=== PATIENT | male | born 1980 | race Two or more races ===

== ENCOUNTER 2020-04-10 02:17 | Inpatient (IN) | payer OTHER ==
[~2020-04-10] VITALS: Ht 170.2 cm; Wt 80.5 kg
[2020-04-10 02:57] LABS: Basophils # (auto) 0.1 10 ^3/uL (0-0.2); Basophils % (auto) 1.4 % (0.0-2.0); Eosinophils # (auto) 0.6 10 ^3/uL (0-0.8); Eosinophils % (auto) 9.1 % (0.0-7.0); Hematocrit 41.6 % (41.0-53.0); Hemoglobin 13.3 g/dL (13.5-17.5); Lymphocytes # (auto) 0.5 10 ^3/uL (0.4-5.4); Lymphocytes % (auto) 6.9 % (10.0-50.0); Mean Corpuscular Hemoglobin 28.3 pg (28.0-32.0); Mean Corpuscular Hgb Conc. 31.9 g/dL (32.0-36.0); Mean Corpuscular Volume 88.7 fL (80.0-100.0); Monocytes # (auto) 0.5 10 ^3/uL (0-1.3); Monocytes % (auto) 6.9 % (0.0-12.0); Neutrophils # (auto) 5.3 10 ^3/uL (1.6-8.6); Neutrophils % (auto) 75.7 % (37.0-80.0); Platelet Count (auto) 202 10^3/uL (140-450); Red Blood Cells 4.69 10^6/uL (4.5-5.90); Red Cell Distribution Width 16.2 % (11.8-14.3)
[2020-04-10 03:13] LABS: INR 1.25 (0.9-1.15)
[2020-04-10 03:15] LABS: Albumin 1.7 g/dL (3.4-5.0); Calcium 7.9 mg/dL (8.5-10.1); Magnesium 2.1 mg/dL (1.6-2.6); Potassium 3.5 mmol/L (3.5-5.1)
[2020-04-10 03:20] LABS: BUN/Creatinine Ratio 21.7; Bilirubin, Total 0.4 mg/dL (0.2-1.0); Total Protein 4.8 g/dL (6.4-8.2)
[2020-04-10] MEDS ORDERED: FUROSEMIDE 40 MG/4 ML VIAL IV ONE (03:45)
[2020-04-10] MEDS ORDERED: NITROGLYCERIN 0.4 MG SL TAB SL PRN (05:30)
[2020-04-10] MEDS ORDERED: ONDANSETRON HCL 4 MG/2 ML VIAL IV PRN (05:30)
[2020-04-10] MEDS ORDERED: MORPHINE SULF INJ 2 MG/ML SYRINGE 1ML IV PRN (05:30)
[2020-04-10] MEDS ORDERED: TEMAZEPAM 15 MG CAP PO PRN (05:30)
[2020-04-10] MEDS ORDERED: DEXTROSE (50%) 50ML SYRG IV PRN (05:30)
[2020-04-10] MEDS: FUROSEMIDE 20 MG TAB PO SCH ×2 (06:41→17:23)
[2020-04-10] MEDS: ACCU-CHEK COMFORT CURVE STRIP VI SCH ×4 (06:41→22:09)
[2020-04-10] MEDS: InsuLIN REG 1unit/0.01ml Soln (100units/ml) SC SCH ×4 (06:47→22:00)
--- NOTE | 2020-04-10 09:15 | NUR ---
Telemetry admit from [facility] admitted to Telemetry unit after SBAR received. Patient oriented to JUVENAL WEST RN primary RN, unit, room, bed, and unit policies regarding patient care and visiting hours. Patient now on continuous telemetry monitoring. All questions and concerns addressed, patient verbalized understanding.
[2020-04-10 09:49] VITALS: BP 120/51
--- NOTE | 2020-04-10 09:55 | NUR ---
paged regarding critical troponin Oil Field Pumper Mikey paged at this time regarding critical troponin of 4.48 ng/mL. Message given to water restoration technician. Awaiting call back.
[2020-04-10] MEDS ORDERED: CARV3.1240 PO (10:06)
[2020-04-10] MEDS ORDERED: CLOP75TA41 PO (10:13)
[2020-04-10] MEDS ORDERED: ALOG1TAB PO (10:13)
[2020-04-10] MEDS ORDERED: B-COTAB94 PO (10:13)
[2020-04-10] MEDS ORDERED: CALC0.25 PO (10:13)
[2020-04-10] MEDS ORDERED: RIVA10TA PO (10:13)
[2020-04-10] MEDS ORDERED: BUME0.5T4 PO (10:13)
[2020-04-10] MEDS ORDERED: EZET10TA22 PO (10:13)
[2020-04-10] MEDS ORDERED: FURO40TA4 PO (10:13)
[2020-04-10] MEDS ORDERED: LEVO75TA6 PO (10:13)
[2020-04-10] MEDS ORDERED: CHOL400C7 PO (10:13)
[2020-04-10] MEDS ORDERED: POTA10TA32 PO (10:13)
[2020-04-10] MEDS: PANTOPRAZOLE 40 MG TAB PO SCH (10:29)
[2020-04-10] MEDS: ASPirin 81 mg TAB PO SCH (10:29)
[2020-04-10] MEDS: CARVEDILOL 3.125 MG TAB PO SCH ×2 (10:30→21:32)
[2020-04-10] MEDS: CLOPIDOGREL BISULFATE 75 MG TAB PO SCH (10:30)
--- NOTE | 2020-04-10 11:15 | NUR ---
Received call from [facility] Merchandise Pickup/Receiving Associate Received call from Dr. Smallwood which according to patient it is his Merchandise Pickup/Receiving Associate at the MD. Dr. MCBRIDE informed patient had not been seen by Merchandise Pickup/Receiving Associate during admission but that the consult was called for Dr. Jensen. Dr. Smallwood wishes to speak with Dr. Jensen, call back number is [phone].
--- NOTE | 2020-04-10 13:00 | NUR ---
Pacemaker interrogation scheduled Pacemaker interrogation called in to [employer]. Interrogation scheduled for 04/11/20 in the morning.
--- NOTE | 2020-04-10 14:50 | NUR ---
1445 04/10/20 I called the [facility] and spoke with Alexis, he confirmed that he did receive clinical information on this patient-he is going to present it to his MD and he will call me back to let me know if his MD will want this patient transferred. I gave him a verbal update on the status of the patient-letting him know that patient is NSTEMI, + troponins and is awaiting cardiology consult
[2020-04-10] MEDS ORDERED: OPTISON 3ml Vial for INJ IV ONE (15:35)
--- NOTE | 2020-04-10 16:07 | NUR ---
1600 04/10/20 I received a call from Alexis at the [facility] letting me know that his MD wants this patient transferred to them. I spoke with Dr. Jonas Abel and made him aware, he said patient not stable for transfer today-has elevated troponins/chest pain and is awaiting cardiology consult. I relayed this information to Alexis-he said he will let his MD know and we will re-evaluate tomorrow.
[2020-04-10 16:53] VITALS: BP 94/57
[2020-04-10] MEDS: RIVAROXABAN 15 MG TAB PO SCH (17:22)
--- NOTE | 2020-04-10 19:30 | NUR ---
Opening Shift Note Assumed care of patient, awake and alert. No S/S of distress/SOB or pain. Instructed on POC and to call for assist PRN, will continue to monitor for changes Q1hr and PRN.
[2020-04-10 22:00] VITALS: BP 92/55
[2020-04-10] MEDS: ATORVASTATIN 20 MG TAB PO SCH (22:10)
[2020-04-11 05:00] VITALS: BP 105/55
[2020-04-11 06:13] LABS: Basophils # (auto) 0 10 ^3/uL (0-0.2); Basophils % (auto) 0.7 % (0.0-2.0); Eosinophils # (auto) 0.6 10 ^3/uL (0-0.8); Eosinophils % (auto) 8.8 % (0.0-7.0); Hematocrit 42.6 % (41.0-53.0); Hemoglobin 13.9 g/dL (13.5-17.5); Lymphocytes # (auto) 0.7 10 ^3/uL (0.4-5.4); Lymphocytes % (auto) 10.6 % (10.0-50.0); Mean Corpuscular Hemoglobin 28.7 pg (28.0-32.0); Mean Corpuscular Hgb Conc. 32.5 g/dL (32.0-36.0); Mean Corpuscular Volume 88.1 fL (80.0-100.0); Monocytes # (auto) 0.4 10 ^3/uL (0-1.3); Monocytes % (auto) 6.6 % (0.0-12.0); Neutrophils # (auto) 4.8 10 ^3/uL (1.6-8.6); Neutrophils % (auto) 73.3 % (37.0-80.0); Nucleated Red Blood Cells % 0.1 %; Platelet Count (auto) 193 10^3/uL (140-450); Red Blood Cells 4.83 10^6/uL (4.5-5.90); Red Cell Distribution Width 16.4 % (11.8-14.3); White Blood Cell 6.5 10^3/uL (4.4-10.8)
[2020-04-11] MEDS: ACCU-CHEK COMFORT CURVE STRIP VI SCH ×4 (06:17→22:03)
[2020-04-11] MEDS: FUROSEMIDE 20 MG TAB PO SCH ×2 (06:17→18:03)
[2020-04-11] MEDS: InsuLIN REG 1unit/0.01ml Soln (100units/ml) SC SCH ×4 (06:17→22:05)
[2020-04-11 08:03] LABS: Calcium 8.2 mg/dL (8.5-10.1)
[2020-04-11 08:05] LABS: BUN/Creatinine Ratio 24.9
[2020-04-11 08:28] LABS: Potassium 2.7 mmol/L (3.5-5.1)
--- NOTE | 2020-04-11 08:30 | NUR ---
critical potassium Received call from lab for critical potassium of 2.7 mmol/L. Hospitalist paged at this time, awaiting call back.
--- NOTE | 2020-04-11 08:40 | NUR ---
petroleum refinery laborer procedure on hold. Received call from Customer Services Manager regarding patient's scheduled procedure. Cath-laborer egg producing farm informed of critical potassium, per nurse hold the patient in Tele floor until orders for potassium replacement are obtained. At this time I am still awaiting call back from hospitalist. Will continue care.
[2020-04-11 09:00] VITALS: BP 106/66
[2020-04-11] MEDS: CLOPIDOGREL BISULFATE 75 MG TAB PO SCH (09:43)
[2020-04-11] MEDS: ASPirin 81 mg TAB PO SCH (09:44)
[2020-04-11] MEDS: POTASSIUM CHL 20MEQ/100ML 100 ML IV SCH ×3 (09:44→16:25)
[2020-04-11] MEDS: PANTOPRAZOLE 40 MG TAB PO SCH (09:44)
[2020-04-11] MEDS: CARVEDILOL 3.125 MG TAB PO SCH ×2 (09:45→22:04)
--- NOTE | 2020-04-11 09:50 | NUR ---
OFF UNIT Patient off unit down to Cath-Lab via bed. No s/s of distress noted upon transfer. IV pump traveling with patient infusing K-rider 20meq at this time. Handoff report given to Joanna MALONE.
[2020-04-11] MEDS ORDERED: POTA10TA51 PO (10:24)
--- NOTE | 2020-04-11 10:30 | NUR ---
Spoke with family Spoke with patient's mom after password in account was verified. Update on POC and patient's condition provided at this time. All questions and concerns addressed. Family is aware patient is at procedure at this time.
[2020-04-11] MEDS ORDERED: MIDAZOLAM HCL 1MG/1ML-2 ML VIAL ONE (10:31)
[2020-04-11] MEDS ORDERED: fentaNYL CITRATE 100 MCG/2 ML VL ONE (10:31)
[2020-04-11] MEDS ORDERED: diphenhdrAMINE HCL 50 MG/1 ML VL ONE (10:31)
[2020-04-11] MEDS ORDERED: ANGIOMAX 250 MG VIAL IV ONE (10:31)
[2020-04-11] MEDS ORDERED: methylPREDNISolone SOD SUCC 125 MG/2 ML VL ONE (10:31)
[2020-04-11] MEDS ORDERED: FAMOTIDINE (10MG/ML) 2ML VL IV ONE (10:32)
[2020-04-11] MEDS ORDERED: LIDOCAINE 2%HCL (LOCAL ANESTH.) INJ 20ML MDV ONE (10:32)
[2020-04-11] MEDS ORDERED: SODIUM CHL 0.9% 50 ML ONE (10:32)
[2020-04-11] MEDS ORDERED: IODIXANOL 320MG/ML 100ML BTL IV ONE (10:32)
--- NOTE | 2020-04-11 11:21 | NUR ---
1100 04/11/20- Contacted [facility] transfer center at [phone] regarding possible transfer of patient. Informed marketing technology coordinator Elvin that patient had a left cardiac heart cath procedure this morning. Mr Oconnor requesting to be informed when patient is [facility].
--- NOTE | 2020-04-11 13:01 | NUR ---
Back on unit ELIZABETH HOLLEY brought to bed following left Cardiac catheterization. Catheterization site assessed for any bleeding, redness or swelling. Right groin incision noted to be actively bleeding and saturating gauze. Cathlab KIRA Marshall at bedside will change dressing at this time and continue to apply pressure until bleeding subsides. Pedal pulses on affected leg assessed for positive tissue perfusion. Patient instructed on need to notify staff immediately if any pain, burning or wetness to site, and any lower back pain.
--- NOTE | 2020-04-11 13:30 | NUR ---
Regarding bleeding right groin Joanna RN notified this RN that pressure had been applied to site during 20 consecutive minutes. Bleeding has subsided at this time. Site assessed, no signs of hematoma present. Dressing clean, dry and intact, area soft to touch. Patient informed to remain in flat position until 1430. Patient verbalizes understanding, will continue to monitor site.
[2020-04-11 16:06] VITALS: BP 102/65
--- NOTE | 2020-04-11 16:20 | NUR ---
Patient refusing Potassium IV Patient complains of excruciating pain to right arm at this time were Potassium IV is being infused. Patient requesting to be disconnected. Patient was informed that this is only first bag of 4 ordered. Patient requesting an alternate for of Potassium administration. Will page MD at this time and notify of refusal.
--- NOTE | 2020-04-11 16:31 | NUR ---
paged back Dr. Abel notified patient is refusing Potassium IV at this time do to pain in affected arm. New orders received at this time. Please check EMAR for orders, will implement orders and continue care.
[2020-04-11] MEDS ORDERED: POTASSIUM CHL 20 Meq TABLET PO ONE (16:45)
[2020-04-11] MEDS: RIVAROXABAN 15 MG TAB PO SCH (18:02)
[2020-04-11 22:00] VITALS: BP 105/67
[2020-04-11] MEDS: ATORVASTATIN 20 MG TAB PO SCH (22:04)
--- NOTE | 2020-04-12 00:06 | NUR ---
Endorsed patient to Shannen MALONE. Patient asleep w/ no signs of distress.
[2020-04-12 05:06] VITALS: BP 103/61
[2020-04-12] MEDS ORDERED: POTASSIUM CHL 20 Meq TABLET PO SCH (06:00)
[2020-04-12 06:49] LABS: Potassium 3.8 mmol/L (3.5-5.1)
[2020-04-12] MEDS: FUROSEMIDE 20 MG TAB PO SCH (06:53)
[2020-04-12] MEDS: InsuLIN REG 1unit/0.01ml Soln (100units/ml) SC SCH ×2 (06:54→11:30)
[2020-04-12] MEDS: ACCU-CHEK COMFORT CURVE STRIP VI SCH ×2 (06:54→11:30)
[2020-04-12 06:57] LABS: BUN/Creatinine Ratio 26.6; Calcium 7.9 mg/dL (8.5-10.1)
--- NOTE | 2020-04-12 07:55 | NUR ---
Opening Shift Note Assumed care of patient, awake and alert. No S/S of distress/SOB or pain. Instructed on POC and to call for assist PRN, will continue to monitor for changes Q1hr and PRN. Patient had questions regarding discharge, no orders yet. Awaiting hospitalist rounding.
[2020-04-12] MEDS: CLOPIDOGREL BISULFATE 75 MG TAB PO SCH (09:15)
[2020-04-12] MEDS: CARVEDILOL 3.125 MG TAB PO SCH (09:15)
[2020-04-12] MEDS: PANTOPRAZOLE 40 MG TAB PO SCH (09:15)
[2020-04-12] MEDS: ASPirin 81 mg TAB PO SCH (09:15)
--- NOTE | 2020-04-12 11:15 | NUR ---
Hospitalist Debbying Dr. Abel at bedside.
--- NOTE | 2020-04-12 11:41 | NUR ---
Nutrition Assessment Notes please see attached link for complete assessment [employer] needs BW 80 [id number] kcals (23-25 kcal/kgBW), Est Protein needs: 80-88 gms/day (1.0-1.1 gm/kgBW r/t elev RFT severe hypoalb). Will continue to monitor and reassess prn. Addendum: 04/12/20 at [address] Amended: Links added.
--- NOTE | 2020-04-12 12:20 | NUR ---
Business Operations Specialist Clearance for Discharge Telephone orders received from Dr. Jensen. Patient is cleared for discharge home today.
--- NOTE | 2020-04-12 12:35 | NUR ---
1235 04/12/20 - [facility] [phone], Provided update on patient's status to hospitality coordinator Alexis. Informed Alexis patient was discharge to home today to f/u with lobster catcher at [place] on 04/22/20. Alexis was appreciative of update and verbalized understanding of all information given.
[2020-04-12 12:45] VITALS: BP 115/74
[2020-04-12 13:00] VITALS: BP 110/68
--- NOTE | 2020-04-12 14:20 | NUR ---
Discharge instructions given as ordered. Encourage to follow up with PMD as instructed. All questions and concerns addressed. Patient verbalized understanding. Medication reconciliation form completed and copy given to patient. IV removed with catheter intact and pressure dressing applied. Telemetry unit returned to ICU. Patient taken to vehicle via wheelchair with all personal belongings accompanied by staff. No distress noted at time of departure.
== END 2020-04-12 14:10 | disposition home or self-care (01) | DRG 250 ==
LOC: EDBD 02:17 → ER 02:22 → TELE 02:23 → TELE-WESTW 09:56
PROVIDERS: ADMIT Nurse Practitioner; ATTEND Family Medicine
PROC: 02703ZZ Dilation of Coronary Artery, One Artery, Percutaneous Approach (ICD-10-PCS; principal; 2020-04-11)
PROC: 4A023N7 Measurement of Cardiac Sampling and Pressure, Left Heart, Percutaneous Approach (ICD-10-PCS; 2020-04-11)
PROC: B2151ZZ Fluoroscopy of Left Heart using Low Osmolar Contrast (ICD-10-PCS; 2020-04-11)
PROC: B2111ZZ Fluoroscopy of Multiple Coronary Arteries using Low Osmolar Contrast (ICD-10-PCS; 2020-04-11)
DX: I21.4 Non-ST elevation (NSTEMI) myocardial infarction (principal); E43 Unspecified severe protein-calorie malnutrition; I50.43 Acute on chronic combined systolic (congestive) and diastolic (congestive) heart failure; R18.8 Other ascites; I13.0 Hypertensive heart and chronic kidney disease with heart failure and stage 1 through stage 4 chronic kidney disease, or unspecified chronic kidney disease; I25.110 Atherosclerotic heart disease of native coronary artery with unstable angina pectoris; E11.21 Type 2 diabetes mellitus with diabetic nephropathy; Z79.4 Long term (current) use of insulin; E11.22 Type 2 diabetes mellitus with diabetic chronic kidney disease; E11.65 Type 2 diabetes mellitus with hyperglycemia; N18.3 Chronic kidney disease, stage 3 (moderate); K74.60 Unspecified cirrhosis of liver; E78.00 Pure hypercholesterolemia, unspecified; Z95.5 Presence of coronary angioplasty implant and graft; I08.1 Rheumatic disorders of both mitral and tricuspid valves; Z95.810 Presence of automatic (implantable) cardiac defibrillator; Z79.02 Long term (current) use of antithrombotics/antiplatelets
CPT/HCPCS: 36415; 71045; 80048; 80053; 82962; 83735; 83880; 84443; 84484; 85025; 85610; 85730; 86850; 86900; 86901; 92920; 93005; 93306; 93458; 99152; G0378; J1815; J2250; J3480; J3490; Q9956; Q9967

== ENCOUNTER 2020-05-02 00:46 | Inpatient (IN) | payer OTHER ==
[~2020-05-02] VITALS: Ht 170.2 cm; Wt 91.3 kg
[~2020-05-02 00:46] MED LIST: ALOG1TAB PO; B-COTAB94 PO; BUME0.5T4 PO; CALC0.25 PO; CARV3.1240 PO; CHOL400C7 PO; CLOP75TA41 PO; EZET10TA22 PO; FURO40TA4 PO; LEVO75TA6 PO; POTA10TA51 PO; RIVA10TA PO
[2020-05-02 01:14] LABS: Basophils # (auto) 0.1 10 ^3/uL (0-0.2); Basophils % (auto) 1.5 % (0.0-2.0); Eosinophils % (auto) 13.6 % (0.0-7.0); Hemoglobin 13.6 g/dL (13.5-17.5); Lymphocytes # (auto) 0.7 10 ^3/uL (0.4-5.4); Lymphocytes % (auto) 9.2 % (10.0-50.0); Mean Corpuscular Hemoglobin 29.1 pg (28.0-32.0); Mean Corpuscular Hgb Conc. 33.1 g/dL (32.0-36.0); Mean Corpuscular Volume 87.8 fL (80.0-100.0); Monocytes # (auto) 0.6 10 ^3/uL (0-1.3); Monocytes % (auto) 7.7 % (0.0-12.0); Neutrophils # (auto) 4.9 10 ^3/uL (1.6-8.6); Nucleated Red Blood Cells % 0.1 %; Platelet Count (auto) 195 10^3/uL (140-450); Red Blood Cells 4.67 10^6/uL (4.5-5.90); Red Cell Distribution Width 16.1 % (11.8-14.3); White Blood Cell 7.1 10^3/uL (4.4-10.8)
[2020-05-02 01:31] LABS: Albumin 1.7 g/dL (3.4-5.0); Calcium 7.8 mg/dL (8.5-10.1); Magnesium 1.7 mg/dL (1.6-2.6); Potassium 3.3 mmol/L (3.5-5.1)
[2020-05-02 01:34] LABS: INR 1.29 (0.9-1.15); Partial Thromboplastin Time 31.1 sec (23.0-31.2)
[2020-05-02 01:42] LABS: Bilirubin, Total 0.4 mg/dL (0.2-1.0); Total Protein 4.7 g/dL (6.4-8.2)
[2020-05-02] MEDS ORDERED: FUROSEMIDE 20 MG/2 ML VIAL IV ONE (05:30)
[2020-05-02] MEDS ORDERED: DEXTROSE (50%) 50ML SYRG IV PRN (06:00)
[2020-05-02] MEDS ORDERED: TEMAZEPAM 15 MG CAP PO PRN (06:00)
[2020-05-02] MEDS ORDERED: ACETAMINOPHEN 325 MG TAB PO PRN (06:00)
[2020-05-02] MEDS: FUROSEMIDE 40 MG TAB PO SCH ×2 (06:00→18:00)
[2020-05-02] MEDS ORDERED: NITROGLYCERIN 0.4 MG SL TAB SL PRN (06:30)
[2020-05-02] MEDS ORDERED: MORPHINE SULF INJ 2 MG/ML SYRINGE 1ML IV PRN (06:30)
[2020-05-02] MEDS: ACCU-CHEK COMFORT CURVE STRIP VI SCH ×4 (07:00→21:42)
[2020-05-02] MEDS: InsuLIN REG 1unit/0.01ml Soln (100units/ml) SC SCH ×4 (07:00→21:42)
[2020-05-02] MEDS: LEVOTHYROXINE SODIUM 25 MCG TAB PO SCH (07:00)
[2020-05-02] MEDS: ASPirin 81 mg TAB PO SCH (09:38)
[2020-05-02] MEDS: PANTOPRAZOLE 40 MG TAB PO SCH (09:38)
[2020-05-02] MEDS: CARVEDILOL 3.125 MG TAB PO SCH ×2 (09:39→21:41)
[2020-05-02] MEDS: CLOPIDOGREL BISULFATE 75 MG TAB PO SCH (09:39)
[2020-05-02] MEDS ORDERED: RIVAROXABAN 10 MG TAB PO SCH (10:00)
[2020-05-02] MEDS ORDERED: EPLE25TA4 PO (10:57)
[2020-05-02] MEDS ORDERED: BUME1TAB3 PO (10:57)
[2020-05-02] MEDS ORDERED: ROSU5TAB5 PO (10:57)
[2020-05-02] MEDS ORDERED: [UNRECOGNIZED DRUG - CODE] OR (10:57)
[2020-05-02] MEDS ORDERED: CAR3125T OR (10:57)
[2020-05-02 13:00] VITALS: BP 92/56
[2020-05-02 18:00] VITALS: BP 108/64
[2020-05-02] MEDS ORDERED: POTASSIUM CHL 20 Meq TABLET PO ONE (18:45)
[2020-05-02] MEDS: ATORVASTATIN 20 MG TAB PO SCH (21:41)
[2020-05-02] MEDS: RIVAROXABAN 10 MG TAB PO SCH (21:43)
[2020-05-02 22:00] VITALS: BP 106/62
[2020-05-02] MEDS ORDERED: SODIUM CHLORIDE 0.9% 1,000 ML IV SCH (22:00)
[2020-05-03 05:23] VITALS: BP 112/67
[2020-05-03 05:54] LABS: Basophils # (auto) 0.1 10 ^3/uL (0-0.2); Basophils % (auto) 1.7 % (0.0-2.0); Eosinophils # (auto) 0.8 10 ^3/uL (0-0.8); Hematocrit 38.5 % (41.0-53.0); Hemoglobin 12.7 g/dL (13.5-17.5); Lymphocytes # (auto) 0.5 10 ^3/uL (0.4-5.4); Mean Corpuscular Hemoglobin 28.9 pg (28.0-32.0); Mean Corpuscular Volume 87.6 fL (80.0-100.0); Monocytes # (auto) 0.4 10 ^3/uL (0-1.3); Monocytes % (auto) 7.8 % (0.0-12.0); Neutrophils # (auto) 3.3 10 ^3/uL (1.6-8.6); Neutrophils % (auto) 66.2 % (37.0-80.0); Platelet Count (auto) 176 10^3/uL (140-450)
[2020-05-03] MEDS: FUROSEMIDE 40 MG TAB PO SCH ×2 (06:00→17:41)
[2020-05-03 06:06] LABS: BUN/Creatinine Ratio 30.5; Potassium 3.2 mmol/L (3.5-5.1)
[2020-05-03 06:13] LABS: Eosinophils % (auto) 15.3 % (0.0-7.0)
[2020-05-03] MEDS: ACCU-CHEK COMFORT CURVE STRIP VI SCH ×4 (06:16→22:24)
[2020-05-03] MEDS: InsuLIN REG 1unit/0.01ml Soln (100units/ml) SC SCH ×4 (06:16→22:31)
[2020-05-03] MEDS: LEVOTHYROXINE SODIUM 25 MCG TAB PO SCH (06:17)
[2020-05-03] MEDS ORDERED: HEPARIN IN NS 1000Units/500mL 0 ML ONE (08:53)
[2020-05-03] MEDS ORDERED: IOHEXOL 350 MG/ML 100ML IJ ONE (08:53)
[2020-05-03] MEDS ORDERED: LIDOCAINE 2%HCL (LOCAL ANESTH.) INJ 20ML MDV ONE ×2 (08:53→08:55)
[2020-05-03 09:00] VITALS: BP 105/60
[2020-05-03] MEDS ORDERED: ANGIOMAX 250 MG VIAL IV ONE (09:11)
[2020-05-03] MEDS ORDERED: VERAPAMIL 2.5MG/ML INJ 2ML VIAL IV ONE (09:12)
[2020-05-03] MEDS ORDERED: HEPARIN SODIUM (PORCINE) 5000 UNITS/ML 1ML VIAL ONE (09:12)
[2020-05-03] MEDS ORDERED: fentaNYL CITRATE 100 MCG/2 ML VL ONE (09:13)
[2020-05-03] MEDS ORDERED: SODIUM CHL 0.9% 50 ML ONE ×2 (09:13→09:14)
[2020-05-03] MEDS ORDERED: MIDAZOLAM HCL 1MG/1ML-2 ML VIAL ONE (09:13)
[2020-05-03] MEDS ORDERED: NITROGLYCERIN 5MG/ML 10ML VIAL IV ONE (09:13)
[2020-05-03] MEDS ORDERED: FAMOTIDINE (10MG/ML) 2ML VL IV ONE (09:26)
[2020-05-03] MEDS ORDERED: diphenhdrAMINE HCL 50 MG/1 ML VL ONE (09:26)
[2020-05-03] MEDS ORDERED: methylPREDNISolone SOD SUCC 125 MG/2 ML VL ONE (09:26)
[2020-05-03] MEDS: ASPirin 81 mg TAB PO SCH (10:00)
[2020-05-03] MEDS: PANTOPRAZOLE 40 MG TAB PO SCH (10:00)
[2020-05-03] MEDS: CLOPIDOGREL BISULFATE 75 MG TAB PO SCH (10:00)
[2020-05-03] MEDS: CARVEDILOL 3.125 MG TAB PO SCH ×2 (10:00→22:21)
[2020-05-03] MEDS ORDERED: CLOPIDOGREL BISULFATE 75 MG TAB ONE ×2 (10:26→10:31)
[2020-05-03] MEDS ORDERED: ASPirin 81 mg TAB ONE ×3 (10:26→11:31)
[2020-05-03] MEDS ORDERED: IODIXANOL 320MG/ML 100ML BTL IV ONE (10:46)
[2020-05-03] MEDS ORDERED: HYDROcodone-ACET 5/325MG TAB PO PRN (11:30)
[2020-05-03 13:00] VITALS: BP 97/65
[2020-05-03] MEDS ORDERED: POTASSIUM CHL 20 Meq TABLET PO ONE (14:00)
[2020-05-03 17:00] VITALS: BP 127/79
[2020-05-03 22:00] VITALS: BP 112/73
[2020-05-03] MEDS: ATORVASTATIN 20 MG TAB PO SCH (22:21)
[2020-05-03] MEDS: RIVAROXABAN 10 MG TAB PO SCH (22:21)
[2020-05-04] VITALS (21 sets, daily range): BP systolic 89–132; BP diastolic 56–79
[2020-05-04] MEDS: ACCU-CHEK COMFORT CURVE STRIP VI SCH ×4 (06:27→22:00)
[2020-05-04] MEDS: FUROSEMIDE 40 MG TAB PO SCH (06:27)
[2020-05-04] MEDS: LEVOTHYROXINE SODIUM 25 MCG TAB PO SCH (06:27)
[2020-05-04] MEDS: InsuLIN REG 1unit/0.01ml Soln (100units/ml) SC SCH ×4 (06:32→23:12)
[2020-05-04] MEDS: CARVEDILOL 3.125 MG TAB PO SCH ×2 (10:00→22:45)
[2020-05-04] MEDS: ASPirin 81 mg TAB PO SCH (10:06)
[2020-05-04] MEDS: PANTOPRAZOLE 40 MG TAB PO SCH (10:07)
[2020-05-04] MEDS: CLOPIDOGREL BISULFATE 75 MG TAB PO SCH (10:07)
[2020-05-04] MEDS ORDERED: POTASSIUM EFFERVESENT TAB 25 MEQ ONE (15:26)
[2020-05-04] MEDS ORDERED: AMIODARONE HCL 150 MG in D5W 5% 100 ML IV ONE (15:30)
[2020-05-04] MEDS ORDERED: METOPROLOL TARTRATE 1MG/1ML-5ML VIAL IV ONE ×3 (15:35→20:50)
[2020-05-04 16:07] LABS: Basophils # (auto) 0 10 ^3/uL (0-0.2); Basophils % (auto) 0.1 % (0.0-2.0); Eosinophils # (auto) 0 10 ^3/uL (0-0.8); Hemoglobin 15.4 g/dL (13.5-17.5); Lymphocytes # (auto) 1.5 10 ^3/uL (0.4-5.4); Lymphocytes % (auto) 7.8 % (10.0-50.0); Mean Corpuscular Hemoglobin 28.8 pg (28.0-32.0); Mean Corpuscular Hgb Conc. 32.7 g/dL (32.0-36.0); Mean Corpuscular Volume 88.2 fL (80.0-100.0); Monocytes # (auto) 1.1 10 ^3/uL (0-1.3); Monocytes % (auto) 5.8 % (0.0-12.0); Neutrophils # (auto) 16.8 10 ^3/uL (1.6-8.6); Neutrophils % (auto) 86.3 % (37.0-80.0); Platelet Count (auto) 220 10^3/uL (140-450); Red Blood Cells 5.33 10^6/uL (4.5-5.90); Red Cell Distribution Width 16.5 % (11.8-14.3); White Blood Cell 19.4 10^3/uL (4.4-10.8)
[2020-05-04] MEDS ORDERED: AMIODARONE 450mg/250ml AE 250 ML IV SCH (16:15)
[2020-05-04 16:26] LABS: BUN/Creatinine Ratio 28.6; Calcium 8.4 mg/dL (8.5-10.1); Magnesium 2.1 mg/dL (1.6-2.6); Phosphorus 3.4 mg/dL (2.5-4.90); Potassium 4.2 mmol/L (3.5-5.1)
[2020-05-04 16:29] LABS: Bilirubin, Total 0.4 mg/dL (0.2-1.0); Total Protein 5.2 g/dL (6.4-8.2)
[2020-05-04] MEDS ORDERED: ADENOSINE 6 MG/2 ML INJ IV ONE ×2 (16:30)
[2020-05-04] MEDS ORDERED: LIDOCAINE HCL 100 MG/5ML (2%) SYRG INJ IV ONE (16:30)
[2020-05-04] MEDS ORDERED: SODIUM CHLORIDE 0.9% 1,000 ML IV ONE (18:15)
[2020-05-04] MEDS ORDERED: cefTRIAXone 1GM/50ML D5W 50 ML IV ONE (18:15)
[2020-05-04] MEDS: AMIODARONE 450mg/250ml AE 250 ML IV SCH ×2 (20:58→22:15)
[2020-05-04] MEDS: ATORVASTATIN 20 MG TAB PO SCH (22:45)
[2020-05-04] MEDS: RIVAROXABAN 10 MG TAB PO SCH (22:46)
[2020-05-05] VITALS (48 sets, daily range): BP systolic 84–110; BP diastolic 50–72
[2020-05-05] MEDS: AMIODARONE 450mg/250ml AE 250 ML IV SCH ×4 (04:05→20:11)
[2020-05-05 04:14] LABS: Basophils # (auto) 0.1 10 ^3/uL (0-0.2); Basophils % (auto) 0.5 % (0.0-2.0); Eosinophils # (auto) 0.1 10 ^3/uL (0-0.8); Eosinophils % (auto) 0.5 % (0.0-7.0); Hematocrit 42.5 % (41.0-53.0); Hemoglobin 14.1 g/dL (13.5-17.5); Lymphocytes # (auto) 0.8 10 ^3/uL (0.4-5.4); Lymphocytes % (auto) 6.8 % (10.0-50.0); Mean Corpuscular Hemoglobin 28.9 pg (28.0-32.0); Mean Corpuscular Hgb Conc. 33.1 g/dL (32.0-36.0); Mean Corpuscular Volume 87.1 fL (80.0-100.0); Monocytes # (auto) 0.7 10 ^3/uL (0-1.3); Monocytes % (auto) 6.1 % (0.0-12.0); Neutrophils % (auto) 86.1 % (37.0-80.0); Platelet Count (auto) 195 10^3/uL (140-450); Red Blood Cells 4.88 10^6/uL (4.5-5.90); Red Cell Distribution Width 16.3 % (11.8-14.3); White Blood Cell 11.6 10^3/uL (4.4-10.8)
[2020-05-05 04:32] LABS: BUN/Creatinine Ratio 30.6; Calcium 7.6 mg/dL (8.5-10.1); Potassium 4.6 mmol/L (3.5-5.1)
[2020-05-05] MEDS: ACCU-CHEK COMFORT CURVE STRIP VI SCH ×4 (05:49→22:13)
[2020-05-05] MEDS: InsuLIN REG 1unit/0.01ml Soln (100units/ml) SC SCH ×4 (05:49→22:19)
[2020-05-05] MEDS: LEVOTHYROXINE SODIUM 25 MCG TAB PO SCH (05:49)
[2020-05-05] MEDS: cefTRIAXone 1GM/50ML D5W 50 ML IV SCH (09:58)
[2020-05-05] MEDS: PANTOPRAZOLE 40 MG TAB PO SCH (09:59)
[2020-05-05] MEDS: CLOPIDOGREL BISULFATE 75 MG TAB PO SCH (09:59)
[2020-05-05] MEDS: ASPirin 81 mg TAB PO SCH (09:59)
[2020-05-05] MEDS: LORazepam 2MG/ML-1ML VIAL IV PRN (10:00)
[2020-05-05] MEDS: CARVEDILOL 3.125 MG TAB PO SCH ×2 (10:08→22:12)
[2020-05-05] MEDS: RIVAROXABAN 10 MG TAB PO SCH (22:11)
[2020-05-05] MEDS: ATORVASTATIN 20 MG TAB PO SCH (22:12)
[2020-05-05] MEDS: ONDANSETRON HCL 4 MG/2 ML VIAL IV PRN (23:11)
[2020-05-06] VITALS (40 sets, daily range): BP systolic 85–107; BP diastolic 46–76
[2020-05-06] MEDS: AMIODARONE 450mg/250ml AE 250 ML IV SCH ×2 (02:40→09:45)
[2020-05-06] MEDS: LORazepam 2MG/ML-1ML VIAL IV PRN (02:40)
[2020-05-06 04:00] LABS: Basophils # (auto) 0.1 10 ^3/uL (0-0.2); Basophils % (auto) 0.6 % (0.0-2.0); Eosinophils # (auto) 0.1 10 ^3/uL (0-0.8); Eosinophils % (auto) 0.6 % (0.0-7.0); Hematocrit 48.2 % (41.0-53.0); Hemoglobin 15.6 g/dL (13.5-17.5); Lymphocytes # (auto) 0.8 10 ^3/uL (0.4-5.4); Lymphocytes % (auto) 6.4 % (10.0-50.0); Mean Corpuscular Hemoglobin 28.4 pg (28.0-32.0); Mean Corpuscular Hgb Conc. 32.3 g/dL (32.0-36.0); Monocytes # (auto) 1.2 10 ^3/uL (0-1.3); Monocytes % (auto) 8.9 % (0.0-12.0); Neutrophils # (auto) 11.1 10 ^3/uL (1.6-8.6); Neutrophils % (auto) 83.5 % (37.0-80.0); Nucleated Red Blood Cells % 0.1 %; Platelet Count (auto) 282 10^3/uL (140-450); Red Blood Cells 5.47 10^6/uL (4.5-5.90); Red Cell Distribution Width 16.2 % (11.8-14.3); White Blood Cell 13.3 10^3/uL (4.4-10.8)
[2020-05-06 04:22] LABS: BUN/Creatinine Ratio 30.1; Calcium 7.6 mg/dL (8.5-10.1); Potassium 4.5 mmol/L (3.5-5.1)
[2020-05-06] MEDS: LEVOTHYROXINE SODIUM 25 MCG TAB PO SCH (06:39)
[2020-05-06] MEDS: ACCU-CHEK COMFORT CURVE STRIP VI SCH ×4 (06:39→22:25)
[2020-05-06] MEDS: InsuLIN REG 1unit/0.01ml Soln (100units/ml) SC SCH ×4 (07:00→22:00)
[2020-05-06] MEDS ORDERED: HYALURONIDASE 150 UNIT/1 ML SUBCUT ONE (07:10)
[2020-05-06] MEDS: cefTRIAXone 1GM/50ML D5W 50 ML IV SCH (08:55)
[2020-05-06] MEDS: PANTOPRAZOLE 40 MG TAB PO SCH (09:45)
[2020-05-06] MEDS: ASPirin 81 mg TAB PO SCH (09:45)
[2020-05-06] MEDS: CARVEDILOL 3.125 MG TAB PO SCH ×2 (09:45→22:00)
[2020-05-06] MEDS: CLOPIDOGREL BISULFATE 75 MG TAB PO SCH (09:45)
[2020-05-06] MEDS: ENOXAPARIN SOD 80 MG/0.8ML SYRINGE SC SCH ×2 (09:45→22:25)
[2020-05-06] MEDS ORDERED: ENOXAPARIN SOD 80 MG/0.8ML SYRINGE SC SCH (10:00)
[2020-05-06] MEDS: ONDANSETRON HCL 4 MG/2 ML VIAL IV PRN (12:00)
[2020-05-06] MEDS ORDERED: FUROSEMIDE 40 MG/4 ML VIAL IV ONE (12:30)
[2020-05-06] MEDS ORDERED: AMIODARONE HCL 200 MG TAB PO ONE (12:45)
[2020-05-06] MEDS ORDERED: SODIUM BICARBONATE 8.4 % INJ 50ML VIAL IV ONE (13:45)
[2020-05-06] MEDS: SODIUM BICARBONATE 650 MG TAB PO SCH ×2 (14:42→22:24)
[2020-05-06 15:07] LABS: Lactic Acid w/Reflex 2.1 mmol/L (0.4-2.0)
[2020-05-06] MEDS ORDERED: FUROSEMIDE 40 MG/4 ML VIAL IV SCH (18:00)
[2020-05-06 21:18] LABS: Sodium Urine < 5 mmol/L (40-220); Urine Bacteria NONE SEEN /hpf (None Seen); Urine Blood Negative /uL (Negative); Urine Hyaline Cast FEW /lpf (0 - 2); Urine Mucus FEW (None Seen); Urine Specific Gravity 1.016 (1.001-1.035); Urine WBC 3 /hpf (0 - 3)
[2020-05-06 21:20] LABS: Creatinine, Urine 65 mg/dL (30.0-125.0)
[2020-05-06] MEDS: PANTOPRAZOLE 40 MG/10 ML VIAL INJ IV SCH (22:23)
[2020-05-06] MEDS: METOCLOPRAMIDE HCL 5MG/ml INJ 2ml VIAL IV SCH (22:23)
[2020-05-06] MEDS: AMIODARONE HCL 200 MG TAB PO SCH (22:24)
[2020-05-06] MEDS: ATORVASTATIN 20 MG TAB PO SCH (22:25)
[2020-05-07] VITALS (23 sets, daily range): BP systolic 80–101; BP diastolic 38–73
[2020-05-07 03:35] LABS: Basophils # (auto) 0 10 ^3/uL (0-0.2); Basophils % (auto) 0.4 % (0.0-2.0); Eosinophils # (auto) 0.1 10 ^3/uL (0-0.8); Eosinophils % (auto) 0.9 % (0.0-7.0); Hematocrit 43.6 % (41.0-53.0); Hemoglobin 14.6 g/dL (13.5-17.5); Lymphocytes # (auto) 0.7 10 ^3/uL (0.4-5.4); Lymphocytes % (auto) 6.8 % (10.0-50.0); Mean Corpuscular Hemoglobin 28.9 pg (28.0-32.0); Mean Corpuscular Hgb Conc. 33.4 g/dL (32.0-36.0); Mean Corpuscular Volume 86.7 fL (80.0-100.0); Monocytes # (auto) 1.1 10 ^3/uL (0-1.3); Monocytes % (auto) 10.6 % (0.0-12.0); Neutrophils # (auto) 8.7 10 ^3/uL (1.6-8.6); Neutrophils % (auto) 81.3 % (37.0-80.0); Platelet Count (auto) 190 10^3/uL (140-450); Red Blood Cells 5.03 10^6/uL (4.5-5.90); Red Cell Distribution Width 16.3 % (11.8-14.3); White Blood Cell 10.8 10^3/uL (4.4-10.8)
[2020-05-07 03:59] LABS: BUN/Creatinine Ratio 27.7; Calcium 7.7 mg/dL (8.5-10.1); Potassium 4.7 mmol/L (3.5-5.1)
[2020-05-07] MEDS: METOCLOPRAMIDE HCL 5MG/ml INJ 2ml VIAL IV SCH ×4 (06:27→21:35)
[2020-05-07] MEDS: SODIUM BICARBONATE 650 MG TAB PO SCH ×3 (06:29→21:35)
[2020-05-07] MEDS: ACCU-CHEK COMFORT CURVE STRIP VI SCH ×4 (06:29→21:36)
[2020-05-07] MEDS: LEVOTHYROXINE SODIUM 25 MCG TAB PO SCH (06:29)
[2020-05-07] MEDS: InsuLIN REG 1unit/0.01ml Soln (100units/ml) SC SCH ×4 (06:37→21:36)
[2020-05-07] MEDS: cefTRIAXone 1GM/50ML D5W 50 ML IV SCH (09:22)
[2020-05-07] MEDS: CARVEDILOL 3.125 MG TAB PO SCH (10:00)
[2020-05-07] MEDS: ENOXAPARIN SOD 80 MG/0.8ML SYRINGE SC SCH ×2 (11:04→21:36)
[2020-05-07] MEDS: ASPirin 81 mg TAB PO SCH (11:04)
[2020-05-07] MEDS: PANTOPRAZOLE 40 MG/10 ML VIAL INJ IV SCH ×2 (11:04→21:35)
[2020-05-07] MEDS: AMIODARONE HCL 200 MG TAB PO SCH ×2 (11:05→21:35)
[2020-05-07] MEDS: CLOPIDOGREL BISULFATE 75 MG TAB PO SCH (11:05)
[2020-05-07] MEDS ORDERED: SODIUM BICARBONATE 8.4 % INJ 50ML VIAL IV ONE (13:45)
[2020-05-07] MEDS: ATORVASTATIN 20 MG TAB PO SCH (21:36)
[2020-05-08 05:35] VITALS: BP 104/63
[2020-05-08] MEDS: SODIUM BICARBONATE 650 MG TAB PO SCH ×3 (05:37→21:53)
[2020-05-08] MEDS: METOCLOPRAMIDE HCL 5MG/ml INJ 2ml VIAL IV SCH (05:37)
[2020-05-08] MEDS: LEVOTHYROXINE SODIUM 25 MCG TAB PO SCH (05:37)
[2020-05-08] MEDS: InsuLIN REG 1unit/0.01ml Soln (100units/ml) SC SCH ×4 (05:38→21:56)
[2020-05-08] MEDS: ACCU-CHEK COMFORT CURVE STRIP VI SCH ×4 (05:38→21:56)
[2020-05-08 06:56] LABS: Basophils # (auto) 0.1 10 ^3/uL (0-0.2); Basophils % (auto) 0.8 % (0.0-2.0); Eosinophils # (auto) 0.4 10 ^3/uL (0-0.8); Eosinophils % (auto) 4.2 % (0.0-7.0); Hematocrit 45.5 % (41.0-53.0); Lymphocytes # (auto) 0.5 10 ^3/uL (0.4-5.4); Lymphocytes % (auto) 5.8 % (10.0-50.0); Mean Corpuscular Hgb Conc. 32.9 g/dL (32.0-36.0); Monocytes # (auto) 0.7 10 ^3/uL (0-1.3); Neutrophils # (auto) 6.8 10 ^3/uL (1.6-8.6); Neutrophils % (auto) 81.2 % (37.0-80.0); Nucleated Red Blood Cells % 0.2 %; Platelet Count (auto) 207 10^3/uL (140-450); Red Blood Cells 5.17 10^6/uL (4.5-5.90); Red Cell Distribution Width 16.1 % (11.8-14.3); White Blood Cell 8.4 10^3/uL (4.4-10.8)
[2020-05-08 07:00] LABS: Potassium 3.5 mmol/L (3.5-5.1)
[2020-05-08 07:12] LABS: BUN/Creatinine Ratio 25.8; Calcium 7.6 mg/dL (8.5-10.1)
[2020-05-08] MEDS ORDERED: HEPARIN SODIUM (PORCINE) 5000 UNITS/ML 1ML VIAL ONE (07:19)
[2020-05-08] MEDS ORDERED: VERAPAMIL 2.5MG/ML INJ 2ML VIAL IV ONE (07:19)
[2020-05-08] MEDS ORDERED: ANGIOMAX 250 MG VIAL IV ONE (07:19)
[2020-05-08] MEDS ORDERED: MIDAZOLAM HCL 1MG/1ML-2 ML VIAL ONE (07:20)
[2020-05-08] MEDS ORDERED: SODIUM CHL 0.9% 0 ML ONE (07:20)
[2020-05-08] MEDS ORDERED: fentaNYL CITRATE 100 MCG/2 ML VL ONE (07:20)
[2020-05-08 08:26] VITALS: BP 114/71
[2020-05-08] MEDS: ASPirin 81 mg TAB PO SCH (09:53)
[2020-05-08] MEDS: CLOPIDOGREL BISULFATE 75 MG TAB PO SCH (09:53)
[2020-05-08] MEDS: cefTRIAXone 1GM/50ML D5W 50 ML IV SCH (09:53)
[2020-05-08] MEDS: AMIODARONE HCL 200 MG TAB PO SCH ×2 (09:53→21:52)
[2020-05-08] MEDS: ENOXAPARIN SOD 80 MG/0.8ML SYRINGE SC SCH ×3 (09:57→21:43)
[2020-05-08] MEDS: PANTOPRAZOLE 40 MG/10 ML VIAL INJ IV SCH ×2 (09:57→21:50)
[2020-05-08] MEDS: LORazepam 2MG/ML-1ML VIAL IV PRN (11:33)
[2020-05-08 13:01] VITALS: BP 111/62
[2020-05-08] MEDS: METOCLOPRAMIDE HCL 10 MG TAB PO SCH ×2 (13:26→21:52)
[2020-05-08 16:19] VITALS: BP 101/60
[2020-05-08 17:28] LABS: Basophils # (auto) 0.1 10 ^3/uL (0-0.2); Basophils % (auto) 0.9 % (0.0-2.0); Eosinophils # (auto) 0.5 10 ^3/uL (0-0.8); Eosinophils % (auto) 6.2 % (0.0-7.0); Hematocrit 43.9 % (41.0-53.0); Hemoglobin 14.6 g/dL (13.5-17.5); Lymphocytes # (auto) 0.5 10 ^3/uL (0.4-5.4); Lymphocytes % (auto) 6.5 % (10.0-50.0); Mean Corpuscular Hemoglobin 29.2 pg (28.0-32.0); Mean Corpuscular Hgb Conc. 33.1 g/dL (32.0-36.0); Monocytes # (auto) 0.7 10 ^3/uL (0-1.3); Monocytes % (auto) 8.9 % (0.0-12.0); Neutrophils # (auto) 6.2 10 ^3/uL (1.6-8.6); Neutrophils % (auto) 77.5 % (37.0-80.0); Nucleated Red Blood Cells % 0.1 %; Platelet Count (auto) 200 10^3/uL (140-450); Red Blood Cells 4.99 10^6/uL (4.5-5.90); Red Cell Distribution Width 16.6 % (11.8-14.3); White Blood Cell 8.1 10^3/uL (4.4-10.8)
[2020-05-08 17:42] LABS: INR 1.1 (0.9-1.15); Partial Thromboplastin Time 32.2 sec (23.0-31.2)
[2020-05-08 17:44] LABS: Calcium 7.3 mg/dL (8.5-10.1); Potassium 3.4 mmol/L (3.5-5.1)
[2020-05-08 17:47] LABS: BUN/Creatinine Ratio 26.2
[2020-05-08] MEDS: ATORVASTATIN 20 MG TAB PO SCH (21:52)
[2020-05-08 23:19] VITALS: BP 106/60
[2020-05-09 05:34] VITALS: BP 109/62
[2020-05-09] MEDS: SODIUM BICARBONATE 650 MG TAB PO SCH ×3 (05:37→22:30)
[2020-05-09] MEDS: METOCLOPRAMIDE HCL 10 MG TAB PO SCH ×3 (05:37→22:31)
[2020-05-09] MEDS: InsuLIN REG 1unit/0.01ml Soln (100units/ml) SC SCH ×4 (06:18→22:32)
[2020-05-09] MEDS: ACCU-CHEK COMFORT CURVE STRIP VI SCH ×4 (06:18→22:31)
[2020-05-09] MEDS: LEVOTHYROXINE SODIUM 25 MCG TAB PO SCH (06:18)
[2020-05-09] MEDS: AMIODARONE HCL 200 MG TAB PO SCH ×2 (06:19→22:31)
[2020-05-09 09:00] VITALS: BP 118/72
[2020-05-09] MEDS: cefTRIAXone 1GM/50ML D5W 50 ML IV SCH (09:03)
[2020-05-09] MEDS: PANTOPRAZOLE 40 MG/10 ML VIAL INJ IV SCH ×2 (09:04→22:30)
[2020-05-09] MEDS: ASPirin 81 mg TAB PO SCH (10:00)
[2020-05-09] MEDS: CLOPIDOGREL BISULFATE 75 MG TAB PO SCH (10:00)
[2020-05-09] MEDS: ENOXAPARIN SOD 80 MG/0.8ML SYRINGE SC SCH (10:00)
[2020-05-09] MEDS ORDERED: VANCOMYCIN 1GM/250ML 250 ML IV ONE (10:56)
[2020-05-09] MEDS ORDERED: fentaNYL CITRATE 100 MCG/2 ML VL ONE (10:57)
[2020-05-09] MEDS ORDERED: MIDAZOLAM HCL 1MG/1ML-2 ML VIAL ONE (10:57)
[2020-05-09] MEDS ORDERED: LIDOCAINE 2%HCL (LOCAL ANESTH.) INJ 20ML MDV ONE ×2 (10:58)
[2020-05-09] MEDS ORDERED: VANCOMYCIN HCL 1000 MG VL ONE (10:58)
[2020-05-09] MEDS: ceFAZolin 1GM/50ML 50 ML IV SCH ×2 (14:25→22:30)
[2020-05-09 16:40] VITALS: BP 108/64
[2020-05-09 22:00] VITALS: BP 103/60
[2020-05-09] MEDS: ATORVASTATIN 20 MG TAB PO SCH (22:31)
[2020-05-10 05:00] VITALS: BP 115/68
[2020-05-10] MEDS: SODIUM BICARBONATE 650 MG TAB PO SCH (06:06)
[2020-05-10] MEDS: LEVOTHYROXINE SODIUM 25 MCG TAB PO SCH (06:07)
[2020-05-10] MEDS: InsuLIN REG 1unit/0.01ml Soln (100units/ml) SC SCH (06:07)
[2020-05-10] MEDS: ACCU-CHEK COMFORT CURVE STRIP VI SCH (06:07)
[2020-05-10] MEDS: METOCLOPRAMIDE HCL 10 MG TAB PO SCH (06:07)
[2020-05-10 09:45] VITALS: BP 109/62
[2020-05-10] MEDS: AMIODARONE HCL 200 MG TAB PO SCH (09:46)
[2020-05-10] MEDS: CLOPIDOGREL BISULFATE 75 MG TAB PO SCH (09:46)
[2020-05-10] MEDS: PANTOPRAZOLE 40 MG/10 ML VIAL INJ IV SCH (09:46)
[2020-05-10 11:46] VITALS: BP 109/62
[2020-05-10 12:46] VITALS: BP 111/66
== END 2020-05-10 13:37 | disposition home or self-care (01) | DRG 245 ==
LOC: EDBD 00:46 → ER 00:47 → TELE 00:48 → TELE-WESTW 10:24 → ICU WEST 05-04 17:55 → TELE-CENTR 05-07 20:45
PROVIDERS: ADMIT Nurse Practitioner; ATTEND Family Medicine
PROC: 4A023N7 Measurement of Cardiac Sampling and Pressure, Left Heart, Percutaneous Approach (ICD-10-PCS; 2020-05-03)
PROC: 02C13ZZ Extirpation of Matter from Coronary Artery, Two Arteries, Percutaneous Approach (ICD-10-PCS; 2020-05-03)
PROC: 027035Z Dilation of Coronary Artery, One Artery with Two Drug-eluting Intraluminal Devices, Percutaneous Approach (ICD-10-PCS; 2020-05-03)
PROC: B211YZZ Fluoroscopy of Multiple Coronary Arteries using Other Contrast (ICD-10-PCS; 2020-05-03)
PROC: B240ZZ3 Ultrasonography of Single Coronary Artery, Intravascular (ICD-10-PCS; 2020-05-03)
PROC: 0JH609Z Insertion of Cardiac Resynchronization Defibrillator Pulse Generator into Chest Subcutaneous Tissue and Fascia, Open Approach (ICD-10-PCS; principal; 2020-05-09)
PROC: 0JPT0PZ Removal of Cardiac Rhythm Related Device from Trunk Subcutaneous Tissue and Fascia, Open Approach (ICD-10-PCS; 2020-05-09)
DX: T82.855A Stenosis of coronary artery stent, initial encounter (principal); I50.43 Acute on chronic combined systolic (congestive) and diastolic (congestive) heart failure; I47.2 Ventricular tachycardia; N17.9 Acute kidney failure, unspecified; I13.0 Hypertensive heart and chronic kidney disease with heart failure and stage 1 through stage 4 chronic kidney disease, or unspecified chronic kidney disease; R65.10 Systemic inflammatory response syndrome (SIRS) of non-infectious origin without acute organ dysfunction; I25.110 Atherosclerotic heart disease of native coronary artery with unstable angina pectoris; E11.22 Type 2 diabetes mellitus with diabetic chronic kidney disease; N18.30 Chronic kidney disease, stage 3 unspecified; E78.5 Hyperlipidemia, unspecified; I08.3 Combined rheumatic disorders of mitral, aortic and tricuspid valves; I25.5 Ischemic cardiomyopathy; Y83.1 Surgical operation with implant of artificial internal device as the cause of abnormal reaction of the patient, or of later complication, without mention of misadventure at the time of the procedure; E78.00 Pure hypercholesterolemia, unspecified; E03.9 Hypothyroidism, unspecified; K74.60 Unspecified cirrhosis of liver; Y92.89 Other specified places as the place of occurrence of the external cause; Z79.02 Long term (current) use of antithrombotics/antiplatelets; I25.2 Old myocardial infarction; Z82.49 Family history of ischemic heart disease and other diseases of the circulatory system; Z83.3 Family history of diabetes mellitus; Z79.01 Long term (current) use of anticoagulants
CPT/HCPCS: 33249; 36415; 71045; 74176; 76775; 80048; 80053; 81001; 82570; 82962; 83605; 83735; 83880; 84100; 84300; 84443; 84484; 85025; 85610; 85730; 86850; 86900; 86901; 87040; 87081; 87086; 92928; 92929; 93005; 93458; 99152; 99153; C1874; C1887; C9113; G0378; J0153; J0690; J0696; J1815; J2250; J2405; J3470; J3490; J7060; Q9967